=== PATIENT | male | born 1980 | race American Indian/Alaskan Native ===

== ENCOUNTER 2017-09-20 02:00 | Emergency (ER) | payer MEDICAID, OTHER ==
[2017-09-20] MEDS ORDERED: MVI, Adult with Vitamin K 10 ML, Folic Acid 1 MG, Thiamine 100 MG in Lactated Ringers 1... IV ONE ×4 (02:06)
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
[2017-09-20 02:21] VITALS: BP 119/94
[2017-09-20 02:37] LABS: CHLORIDE,CL 108 mmol/L (101-111); SODIUM,NA 141 mmol/L (135-145)
[2017-09-20 02:38] LABS: ACETAMINOPHEN < 10
== END 2017-09-20 04:20 ==
LOC: DL.ED 02:00
DX: S60.921A Unspecified superficial injury of right hand, initial encounter (principal); S60.922A Unspecified superficial injury of left hand, initial encounter; F10.120 Alcohol abuse with intoxication, uncomplicated; F17.210 Nicotine dependence, cigarettes, uncomplicated; W19.XXXA Unspecified fall, initial encounter
CPT/HCPCS: 36415; 80053; 80305; 81001; 85025; 96365; 96366; 99285; G0480; J3411; J7120; J3490

== ENCOUNTER 2020-10-11 04:02 | Emergency (ER) | payer MEDICARE, MEDICAID ==
[2020-10-11 04:05] VITALS: BP 112/86; PULSE 88
[2020-10-11 04:33] LABS: ANION GAP 15.5 mEq/L (7-13); CHLORIDE,CL 104 mmol/L (98-107); SODIUM,NA 143 mmol/L (136-145)
[2020-10-11] MEDS ORDERED: MVI, Adult with Vitamin K 10 ML, Folic Acid 1 MG, Thiamine 100 MG in Lactated Ringers 1... IV ONE ×4 (04:36)
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
== END 2020-10-11 06:00 ==
LOC: DL.ED 04:02
DX: F10.120 Alcohol abuse with intoxication, uncomplicated (principal); F17.210 Nicotine dependence, cigarettes, uncomplicated; Y90.8 Blood alcohol level of 240 mg/100 ml or more
CPT/HCPCS: 36415; 80053; 80305; 80307; 85025; 96365; 99284; J3411; J7120; J3490

== ENCOUNTER 2020-12-30 05:48 | Emergency (ER) | payer MEDICARE, MEDICAID ==
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
[2020-12-30 06:24] VITALS: BP 142/57; PULSE 74
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
== END 2020-12-30 08:10 | disposition home or self-care (01) ==
LOC: DL.ED 05:48
DX: S02.2XXA Fracture of nasal bones, initial encounter for closed fracture (principal); Y04.8XXA Assault by other bodily force, initial encounter
CPT/HCPCS: 70450; 70486; 72125; 99283; 99284-25